=== PATIENT | female | born 1975 | race Caucasian/White ===

== ENCOUNTER 2018-06-30 16:53 | Outpatient (CLI) | payer OTHER | END 2018-06-30 17:21 | disposition home or self-care (01) | LOC: LAB 16:53 | DX: J11.1 Influenza due to unidentified influenza virus with other respiratory manifestations (principal); J06.9 Acute upper respiratory infection, unspecified ==

== ENCOUNTER 2019-02-15 07:20 | Day surgery (SDC) | payer OTHER | END 2019-02-15 13:00 | disposition home or self-care (01) | LOC: AMB-ENDOS 07:20 | DX: R19.8 Other specified symptoms and signs involving the digestive system and abdomen (principal); Z12.11 Encounter for screening for malignant neoplasm of colon ==

== ENCOUNTER 2019-03-21 06:38 | Day surgery (SDC) | payer OTHER ==
[2019-03-21] MEDS ORDERED: PERCOCET 5-3251 EACH PO (10:07)
[2019-03-21] MEDS ORDERED: NEURONTIN300 MG PO (10:07)
[2019-03-21] MEDS ORDERED: KETOROLAC TROME10 MG PO (10:08)
[2019-03-21] MEDS ORDERED: RECTICARE30 GM TOP (10:10)
[2019-03-21] MEDS ORDERED: POLY119PG PO (10:11)
== END 2019-03-21 13:50 | disposition home or self-care (01) ==
LOC: CIR.AMB 06:38
DX: K64.8 Other hemorrhoids (principal); K64.4 Residual hemorrhoidal skin tags